=== PATIENT | female | born 1990 | race Caucasian/White ===

== ENCOUNTER 2016-07-14 11:50 | Emergency (ER) | payer MEDICAID | END 2016-07-14 13:57 | disposition left against medical advice (07) | LOC: D.ER 11:50 | DX: J02.9 Acute pharyngitis, unspecified (principal) ==

== ENCOUNTER 2016-07-14 14:02 | Emergency (ER) | payer MEDICAID | END 2016-07-14 20:20 | disposition home or self-care (01) | LOC: D.ER 14:02 | DX: H66.91 Otitis media, unspecified, right ear (principal); F17.200 Nicotine dependence, unspecified, uncomplicated ==

== ENCOUNTER 2016-08-24 15:47 | Emergency (ER) | payer MEDICAID ==
[2016-08-24 16:53] LABS: APPEARANCE CLOUDY (CLEAR); BILIRUBIN NEGATIVE (NEGATIVE); COLOR DK YELLOW (YELLOW); GLUCOSE NEGATIVE (NEGATIVE); KETONE NEGATIVE (NEGATIVE); LEUKOCYTE ESTERASE 1+ (NEGATIVE); NITRITE NEGATIVE (NEGATIVE); PH 5.5 (5.0-6.0); PROTEIN TRACE mg/dL (NEGATIVE); UROBILINOGEN NORMAL (NORMAL)
[2016-08-24 17:00] LABS: BACTERIA MANY /hpf (NONE SEEN); MUCUS >1+ /lpf (NONE SEEN); RED CELLS - URINE OCC /hpf (0-5)
[2016-08-24 17:01] LABS: AMORPHOUS SEDIMENT >1+ /lpf (NONE SEEN); GRANULAR CAST OCC /lpf (NONE SEEN); HYALINE CAST OCC /lpf (NONE SEEN)
[2016-08-24 17:09] LABS: BASOPHILS 2.5 % (0-2); EOSINOPHILS 0.6 % (0-7); HEMOGLOBIN 13.4 g/dL (12-16); IMMATURE GRANULOCYTES 0.1 % (0-5); LYMPHOCYTES 49.4 % (15-50); MCH 30.7 pg (26.0-34.0); MCHC 33.5 g/dL (31.0-37.0); MCV 91.7 fL (80.0-100.0); MEAN PLATELET VOLUME 11.2 fL (7.4-10.4); MONOCYTES 10.6 % (2-11); NEUTROPHILS 36.8 % (40-80); PLATELET COUNT 169 10x3/uL (130-400); RBC 4.36 10x6/uL (4.00-5.40); RDW 13.2 % (11.5-14.5); WBC 7.3 10x3/uL (4.8-10.8)
[2016-08-24 17:24] LABS: HCG SERUM NEGATIVE (NEGATIVE)
== END 2016-08-24 18:40 | disposition home or self-care (01) ==
LOC: D.ER 15:47
PROVIDERS: Emergency Medicine
DX: N39.0 Urinary tract infection, site not specified (principal); H66.93 Otitis media, unspecified, bilateral

== ENCOUNTER 2017-09-30 16:27 | Emergency (ER) | payer MEDICAID ==
[~2017-09-30] VITALS: Ht 170.2 cm; Wt 81.8 kg
[2017-09-30 16:39] VITALS: Ht 170.2 cm; Wt 81.8 kg
[2017-09-30] MEDS ORDERED: VIBRAMYCIN 100100 MG PO (17:00)
[2017-09-30] MEDS ORDERED: VOLTAREN75 MG PO (17:00)
[2017-09-30 17:39] VITALS: BP 114/72
== END 2017-09-30 17:34 | disposition home or self-care (01) ==
LOC: D.ER 16:27
DX: L03.115 Cellulitis of right lower limb (principal)